=== PATIENT | female | born 1965 | race Two or more races ===

== ENCOUNTER 2024-07-21 16:09 | Emergency (ER) | payer MEDICAID, OTHER ==
[~2024-07-21] VITALS: Ht 152.4 cm; Wt 110.8 kg
[2024-07-21 16:20] VITALS: BP 144/81; PULSE 98; RESP 18; O2SAT 96
== END 2024-07-21 16:49 | disposition left against medical advice (07) ==
LOC: ER 16:09
DX: M79.641 Pain in right hand (principal); Z53.21 Procedure and treatment not carried out due to patient leaving prior to being seen by health care provider